=== PATIENT | male | born 1995 | race African-American/Black ===

== ENCOUNTER 2017-01-02 23:08 | Emergency (ER) | payer OTHER ==
[~2017-01-02] VITALS: Ht 190.5 cm; Wt 104.3 kg
[2017-01-02 23:10] VITALS: BP 134/76; PULSE 98; RESP 18; TEMP 99.3; O2SAT 98
[2017-01-02 23:55] VITALS: BP 134/76; PULSE 98; RESP 18; TEMP 99.3; O2SAT 98
== END 2017-01-02 23:55 | disposition home or self-care (01) ==
LOC: SED 23:08
DX: B34.9 Viral infection, unspecified (principal)
CPT/HCPCS: 99281

== ENCOUNTER 2020-02-19 22:47 | Emergency (ER) | payer OTHER ==
[~2020-02-19] VITALS: Ht 182.9 cm; Wt 99.8 kg
[2020-02-19 22:49] VITALS: BP_SYST 144
--- NOTE | 2020-02-19 22:51 | NUR ---
Patient to ER bed HALLWAY to gon for evaluation. Side rails up. Report given to MARTHA.
--- NOTE | 2020-02-19 23:03 | NUR ---
ER at bedside examining patient.
--- NOTE | 2020-02-19 23:11 | NUR ---
PT CAME HERE FOR WORK CLEARANCE.DENIES ANY COMPLAINTS.STS YESTERDAY HE HAD EPISODE OF SOB BUT WENT AWAY.
--- NOTE | 2020-02-19 23:22 | NUR ---
Patient given written and verbal discharge instructions and verbalizes understanding. ER MD discussed with patient the results and treatment provided. Patient in stable condition. ID arm band removed. NO Rx of given. Patient educated on pain management and to follow up with PMD. Pain Scale 0/10. Opportunity for questions provided and answered. Medication side effect fact sheet provided.
[2020-02-19 23:23] VITALS: BP_SYST 135
== END 2020-02-19 23:23 | disposition home or self-care (01) ==
LOC: SED 22:47
DX: R06.02 Shortness of breath (principal); Z20.828 Contact with and (suspected) exposure to other viral communicable diseases
CPT/HCPCS: 99283; U0003

== ENCOUNTER 2020-06-15 23:14 | Emergency (ER) | payer OTHER, SELFPAY ==
[~2020-06-15] VITALS: Ht 190.5 cm; Wt 99.8 kg
[2020-06-15 23:25] VITALS: BP_SYST 136
--- NOTE | 2020-06-15 23:25 | NUR ---
Patient to ER bed 8 to gown for evaluation. Side rails up. Report given to KAR.
--- NOTE | 2020-06-15 23:30 | NUR ---
PT AAO AND AMBULATORY REPORTING NAUSEA, VOMITING, AND DIARRHEA FOR THE PAST THREE DAYS. PT VOMITED TWICE YESTERDAY AND HAD TWO EPISODES OF DIARRHEA TODAY. PT WAS POSSIBLY EXPOSED TO COVID AT WORK. DENIES FEVER, SOB, OR ANY PAIN CURRENTLY. V/S STABLE.
--- NOTE | 2020-06-15 23:45 | NUR ---
ER at bedside examining patient.
[2020-06-16] MEDS ORDERED: PANTOPRAZOLE SODIUM 40 MG/VIAL (PROTONIX) IVP ONE
[2020-06-16] MEDS ORDERED: ONDANSETRON HCL 4 MG/2 ML VIAL IVP ONE
[2020-06-16] MEDS ORDERED: ONDANSETRON HCL 4 MG/2 ML VIAL ONE (00:28)
--- NOTE | 2020-06-16 00:30 | NUR ---
Stool sample sent to lab.
[2020-06-16 00:42] LABS: BASOPHILS # (AUTO) 0.1 K/uL (0.0-0.2); BASOPHILS % (AUTO) 1.1 % (0.0-2.0); CALCIUM 8.7 mg/dL (8.4-11.0); CREATININE 1.12 mg/dL (0.55-1.30); EOSINOPHILS # (AUTO) 0.1 K/uL (0.0-0.4); HEMATOCRIT 52.9 % (36-54); HEMOGLOBIN 17.8 g/dL (14.0-18.0); LYMPHOCYTES # (AUTO) 2.3 K/uL (1.0-5.5); MEAN CORPUSCULAR HEMOGLOBIN 30 pg (27-31); MEAN CORPUSCULAR HGB CONC 34 % (32-36); MEAN CORPUSCULAR VOLUME 88 fL (79.0-98.0); MONOCYTES # (AUTO) 0.6 K/uL (0.0-1.0); MONOCYTES % (AUTO) 8.8 % (1.7-9.3); NEUTROPHILS # (AUTO) 3.8 K/uL (1.8-7.7); NEUTROPHILS % (AUTO) 55.1 % (40.0-70.0); PLATELET COUNT (AUTO) 195 K/uL (130-430); POTASSIUM 3.5 mmol/L (3.5-5.1); RED BLOOD CELL COUNT(AUTO) 5.99 MIL/uL (4.2-6.2); RED CELL DISTRIBUTION WIDTH 13.5 % (9.0-15.0); WHITE BLOOD COUNT (AUTO) 6.8 K/uL (4.8-10.8)
[2020-06-16 00:48] LABS: ALBUMIN 4.2 g/dL (3.4-4.8); TOTAL BILIRUBIN 0.1 mg/dL (0.0-1.0)
[2020-06-16 01:04] LABS: BILIRUBIN,URINE NEGATIVE (NEGATIVE); BLOOD, URINE NEGATIVE (NEGATIVE); CLARITY/URINE CLEAR (CLEAR); COLOR,URINE YELLOW (YELLOW); GLUCOSE,URINE NEGATIVE (NEGATIVE); KETONES,URINE NEGATIVE (NEGATIVE); LEUKOCYTE ESTERASE ,URINE NEGATIVE (NEGATIVE); NITRITE, URINE NEGATIVE (NEGATIVE); PH,URINE 5.5 (5.0-8.0); PROTEIN URINE NEGATIVE (NEGATIVE); UROBILINOGEN,URINE 0.2 (0.2-1.0)
--- NOTE | 2020-06-16 01:35 | NUR ---
Patient given written and verbal discharge instructions and verbalizes understanding. DR. YASEMIN TEE MD discussed with patient the results and treatment provided. Patient in stable condition. ID arm band removed. IV catheter removed intact and dressing applied, no active bleeding. Patient educated on pain management and to follow up with PMD. Pain Scale 0/10. Opportunity for questions provided and answered.
[2020-06-16 01:37] VITALS: BP_SYST 136
== END 2020-06-16 01:37 | disposition home or self-care (01) ==
LOC: SED 23:14
DX: K52.9 Noninfective gastroenteritis and colitis, unspecified (principal); Z20.828 Contact with and (suspected) exposure to other viral communicable diseases
CPT/HCPCS: 36415; 80053; 81003; 83690; 85025; 87426; 89055; 96374; 96375; 99284; C9113; C9803; J2405; U0003

== ENCOUNTER 2020-08-06 03:58 | Emergency (ER) | payer OTHER, SELFPAY ==
[~2020-08-06] VITALS: Ht 190.5 cm; Wt 104.3 kg
[2020-08-06 04:00] VITALS: BP_SYST 147
[2020-08-06 05:08] VITALS: BP_SYST 147
== END 2020-08-06 05:08 | disposition home or self-care (01) ==
LOC: SED 03:58
DX: J06.9 Acute upper respiratory infection, unspecified (principal); Z20.828 Contact with and (suspected) exposure to other viral communicable diseases
CPT/HCPCS: 36415; 99283

== ENCOUNTER 2022-10-16 17:22 | Emergency (ER) | payer BC, OTHER ==
[~2022-10-16] VITALS: Ht 190.5 cm; Wt 122.5 kg
[2022-10-16 17:22] VITALS: BP_SYST 152
--- NOTE | 2022-10-16 17:22 | NUR ---
BROUGHT BACK TO BED #4 AND TRIAGED. REPORT GIVEN TO ORALIA
--- NOTE | 2022-10-16 17:33 | NUR ---
PT presents to e with report of upper left chest pain since Monday, worsening today. pt noted to be anxious and talking fast. breathing even and unlabored. denies any drug or alcohol use. mother at bedside. pt speaks clear and full sentences. MD vilchis at bedside for MSE. EKG done and handed to MD vilchis to read
--- NOTE | 2022-10-16 17:56 | NUR ---
xray at bedside
--- NOTE | 2022-10-16 18:07 | NUR ---
pt resting in position of comfort. no acute distress noted, breathing even and unlabored. blanket provided for comfort. safety measures in place.
[2022-10-16 18:13] LABS: BASOPHILS % (AUTO) 0.5 % (0.0-2.0); EOSINOPHILS % (AUTO) 0.3 % (0.0-4.0); HEMATOCRIT 50.7 % (36-54); HEMOGLOBIN 17.1 g/dL (14.0-18.0); LYMPHOCYTES # (AUTO) 1.5 K/uL (1.0-5.5); LYMPHOCYTES % (AUTO) 25.3 % (20.5-51.5); MEAN CORPUSCULAR HEMOGLOBIN 29 pg (27-31); MEAN CORPUSCULAR HGB CONC 34 % (32-36); MEAN CORPUSCULAR VOLUME 87 fL (79.0-98.0); MONOCYTES # (AUTO) 0.5 K/uL (0.0-1.0); MONOCYTES % (AUTO) 7.7 % (1.7-9.3); NEUTROPHILS # (AUTO) 3.9 K/uL (1.8-7.7); NEUTROPHILS % (AUTO) 66.2 % (40.0-70.0); PLATELET COUNT (AUTO) 208 K/uL (130-430); RED BLOOD CELL COUNT(AUTO) 5.81 MIL/uL (4.2-6.2); RED CELL DISTRIBUTION WIDTH 13.6 % (9.0-15.0); WHITE BLOOD COUNT (AUTO) 5.9 K/uL (4.8-10.8)
[2022-10-16 18:23] LABS: ANION GAP 8 (5-15); CALCIUM 8.9 mg/dL (8.4-11.0); CHLORIDE 103 mmol/L (98-107); CREATININE 1.27 mg/dL (0.55-1.30); GLUCOSE 104 mg/dL (70-99); UREA NITROGEN, BLOOD 16 mg/dL (8-21)
[2022-10-16 18:26] LABS: GFR AFRICAN AMERICAN 88 mL/min (>90)
[2022-10-16 18:30] LABS: ALANINE AMINOTRANSFERASE 51 U/L (12-78); ALBUMIN 4.1 g/dL (3.4-4.8); ASPARTATE AMINOTRANSFERASE 27 U/L (10-37); TOTAL BILIRUBIN 0.5 mg/dL (0.0-1.0)
[2022-10-16] MEDS ORDERED: PSEU30TA36 PO (18:42)
--- NOTE | 2022-10-16 18:51 | NUR ---
swabbed bilateral nares for covid and influenza. discharge instructions reviewed with pt, pt verbalized understanding and denied any questions. pt denies any chest pain at this time. pt ambulated from ed with steady gait
[2022-10-16 18:53] VITALS: BP_SYST 138
[2022-10-16 18:53] LABS: CREATINE KINASE MB 3.3 ng/mL (0-3.6)
== END 2022-10-16 18:53 | disposition home or self-care (01) ==
LOC: SED 17:22
DX: R07.89 Other chest pain (principal); Z79.899 Other long term (current) drug therapy; Z20.822 Contact with and (suspected) exposure to COVID-19
CPT/HCPCS: 36415; 71045; 80053; 82550; 82553; 84484; 85025; 85379; 93005; 99285